=== PATIENT | male | born 1940 | race Caucasian/White ===

== ENCOUNTER 2016-03-17 07:07 | Emergency (ER) | payer MEDICARE ==
--- NOTE | 2016-03-17 08:11 | ERRECORD ---
[facility] EMERGENCY RECORD HPI URINARY RETENTION (07:51 JPIP) CHIEF COMPLAINT: Patient presents for evaluation of acute urinary retention, Patient presents for evaluation of patient had a arredondo placed post bladder surgery. Today feels bladder is distened and bag is not filling. HISTORIAN: History provided by patient. LOCATION: Symptoms are localized, most severe in the suprapubic region. QUALITY: Pain is dull in nature, described as pressure-like. SEVERITY: Current severity of pain rated as 7/10. TIME COURSE: Gradual onset of symptoms, 1, days priror to arrival, Symptoms are worsening, are constant. ASSOCIATED WITH: Associated with abdominal pain, No associated chills, No associated fever, No associated flank pain, No associated nausea, No associated vomiting. EXACERBATED BY: Patient's condition exacerbated by palpation of abdomen. RELIEVED BY: Patient's condition relieved by nothing. ROS (07:54 JPIP) CONSTITUTIONAL: Historian denies chills, denies fever. GI: Historian reports abdominal pain, reports constipation, denies nausea, denies vomiting. GENITOURINARY MALE: Historian reports urinary retention. NOTES: All systems reviewed, negative except as described above. PAST MEDICAL HISTORY MEDICAL HISTORY: Notes: hunner's ulcer, interstitial cystitis, Flu vaccine up to date, Tetanus not up to date, Pneumococcal vaccine up to date, Past medical history includes history of diabetes, genitourinary history. benign prostatic hypertrophy, Past medical history includes history of hypertension. (07:14 KMOR) MALE SURGICAL HISTORY: Surgical history of prostatectomy, TURP. (07:14 KMOR) PSYCHIATRIC HISTORY: No previous psychiatric history. (07:14 KMOR) SOCIAL HISTORY: Patient drinks socially, rarely, Patient denies drug use, Patient has no smoking history. (07:14 KMOR) NOTES: Nursing records reviewed, Medication list reviewed. (07:56 JPIP) KNOWN ALLERGIES Sulfa (Sulfonamide Antibiotics) CURRENT MEDICATIONS lisinopril: TABLET : Strength - 40 mg : ORAL Patient Dose: 1 tab(s) Oral once a day. (07:17 AHOO) hydrochlorothiazide: &a-1R&a+25V*p+0X*k9724E*c202B*c15G*c2P*p-0X&a-25V&a+1R Name: Liz Anderson : 1940 M75 MedRec: [id number] AcctNum: [id number] Prepared: SunMar 17, 2016 08:09 by Interface Page 1 of 4 pMD [facility] EMERGENCY RECORD CAPSULE : Strength - 12.5 mg : ORAL Patient Dose: 1 tab(s) Oral once a day. (07:19 AHOO) metFORMIN: TABLET : Strength - 1,000 mg : ORAL Patient Dose: 1 tab(s) Oral 2 times a day. (07:19 AHOO) Lovaza: CAPSULE : Strength - 1 gram : ORAL Patient Dose: 1 tab(s) Oral once a day (in the morning). (07:21 AHOO) Centrum Silver: TABLET : ORAL Patient Dose: 1 tab(s) Oral once a day (in the morning). (07:22 AHOO) Cinnamon: CAPSULE : Strength - 500 mg : ORAL Patient Dose: 1 cap(s) Oral once a day (in the morning). (07:22 AHOO) amitriptyline: TABLET : Strength - 25 mg : ORAL Patient Dose: 1 tab(s) Oral once a day (in the evening). (07:23 AHOO) Atarax: TABLET : Strength - 25 mg : ORAL Patient Dose: 1 tab(s) Oral once a day (in the evening). (07:24 AHOO) PriLOSEC: CAPSULE,DELAYED RELEASE (ENTERIC COATED) : Strength - 40 mg : ORAL Patient Dose: 1 tab(s) Oral once a day (in the evening). (07:24 AHOO) Lipitor: TABLET : Strength - 20 mg : ORAL Patient Dose: 1 tab(s) Oral once a day (in the evening). (07:25 AHOO) Flomax: CAPSULE, EXT RELEASE 24 HR : Strength - 0.4 mg : ORAL Patient Dose: 1 tab(s) Oral once a day (in the evening). (07:32 AHOO) Aleve: CAPSULE : Strength - 220 mg : ORAL Patient Dose: 1 cap(s) Oral once a day (in the evening). (07:33 AHOO) potassium gluconate: TABLET : Strength - 595 mg (99 mg) : ORAL Patient Dose: 1 tab(s) Oral once a day (in the evening). (07:34 AHOO) clobetasol: CREAM (GRAM) : Strength - 0.05 % : TOPICAL Patient Dose: 1 jalen Topical As Needed. (07:36 AHOO) Clobex: SPRAY, NON-AEROSOL (ML) : Strength - 0.05 % : TOPICAL &a-1R&a+25V*p+0X*c0074B*c202B*c15G*c2P*p-0X&a-25V&a+1R Name: Liz Anderson : 1940 M75 MedRec: [id number] AcctNum: [id number] Prepared: SunMar 17, 2016 08:09 by Interface Page 2 of 4 pMD [facility] EMERGENCY RECORD Patient Dose: 1 jalen Topical As Needed. (07:37 AHOO) Olux: FOAM (GRAM) : Strength - 0.05 % : TOPICAL Patient Dose: 1 jalen Topical As Needed. (07:39 AHOO) Pyridium: TABLET : Strength - 200 mg : ORAL Patient Dose: 1 tab(s) Oral As Needed. (07:40 AHOO) VITAL SIGNS VITAL SIGNS: BP: 142/101, Pulse: 94, Resp: 18, Temp: 97.6 (Oral), Pain: 7, O2 sat: 94 on Room Air, Time: 03/17/2016 07:11. (07:11 KMOR) BP: 175/88, Pulse: 95, Resp: 18, Temp: 98.0 (Oral), Pain: 0, O2 sat: 98 on Room Air, Time: 03/17/2016 07:55. (07:55 AHOO) PHYSICAL EXAM (07:55 [facility]) CONSTITUTIONAL: Vital signs reviewed, Patient afebrile, Pulse normal, Blood pressure, hypertensive, Respiratory rate normal, Patient appears in pain, in mild pain distress, Patient alert and oriented to person, place and time. HEAD: Head exam included findings of head atraumatic, normocephalic. EYES: Eye exam included findings of eyelids normal to inspection, Conjunctiva normal, Sclera normal, no periorbital ecchymosis, no periorbital edema, no periorbital erythema. RESPIRATORY CHEST: Respiratory exam included findings of no respiratory distress. ABDOMEN MALE: Abdominal exam included findings of abdomen tender, to the suprapubic region. BACK: no costovertebral angle tenderness. NEURO: [place] coma scale 15, Neuro exam findings include patient oriented to person, place and time, no focal motor deficits. SKIN: Skin exam included findings of skin warm, dry, and normal in color. PSYCHIATRIC: Psychiatric exam included findings of patient oriented to person place and time, Normal affect. PROBLEM LIST No recorded problems DIAGNOSIS (08:06 IP) FINAL: PRIMARY: urinary retention, ADDITIONAL: arredondo occlusion. PRESCRIPTION (07:38 JPIP) Dulcolax (bisacodyl) rectal: SUPPOSITORY, RECTAL : 10 mg : RECTAL : Quantity: 1 Unit: Route: RECTAL Schedule: 1 to 2 times a day Dispense: 6 May substitute. Refills: No Refills . NOTES: for constipation No refills. &a-1R&a+25V*p+0X*r1587J*c202B*c15G*c2P*p-0X&a-25V&a+1R Name: Liz Anderson : 1940 M75 MedRec: [id number] AcctNum: [id number] Prepared: SunMar 17, 2016 08:09 by Interface Page 3 of 4 pMD [facility] EMERGENCY RECORD DISPOSITION PATIENT: Disposition Type: Discharge, Disposition: *Discharge Home, Condition: Good. (08:06 IP) Patient left the department. (08:06 [facility]) Garsia: [facility]=TR Lovett, May JPIP=DO Duarte Joseph KMOR=JULIAN Britton, Autumn &a-1R&a+25V*p+0X*h9212F*c202B*c15G*c2P*p-0X&a-25V&a+1R Name: Liz Anderson : 1940 M75 MedRec: [id number] AcctNum: [id number] Prepared: SunMar 17, 2016 08:09 by Interface Page 4 of 4 pMD MTDD
--- NOTE | 2016-03-17 08:17 | PICIS ---
[facility] EMERGENCY RECORD TRIAGE (07:11 KMOR) TRIAGE NOTES: Catheter placed at [facility] last week and this am, feels like catheter is not working. (07:11 KMOR) PATIENT: NAME: Liz Anderson, AGE: 75, GENDER: male, : Sun1940, TIME OF GREET: SunMar 17, 2016 07:08, PREFERRED LANGUAGE: Spanish, ETHNICITY: Not or , ECODE BILLING MAP: [facility], SSN: [id number], Zip Code: [address], KG WEIGHT: 78.02, , , PERSON ID: [id number], PAYMENT: [employer], PCP: Kalia Peterson. (07:11 KMOR) PHONE: . (07:32) COMPLAINT: Cathether complications. (07:11 KMOR) ADMISSION: URGENCY: 4 Non Urgent, ADMISSION SOURCE: Home, TRANSPORT: CAR, BED: ER -02. (07:11 KMOR) ASSESSMENT: Assessment: A&OX4. RR EVEN AND UNLABORED., Symptoms began 2 hours ago. (07:14 KMOR) PAIN: Patient complains of pain described as, pressure, on a scale 0-10 patient rates pain as 7, Location SUPRAPUBIC. (07:14 KMOR) IMMUNIZATIONS: Flu vaccine up to date, Tetanus not up to date, Pneumococcal vaccine up to date. (07:14 KMOR) SIRS SCORING: Heart Rate 55-109 (0), Temp range 96.8-101.1 (0), respiratory rate 12-24 (0), Mental Status altered: no (0), Infection or Suspected Infection: No. (07:14 KMOR) TRIAGE SCREENING: Patient denies suicidal ideation, Patient denies presence of domestic violence. (07:14 KMOR) PROVIDERS: TRIAGE NURSE: Autumn Britton RN. (07:11 KMOR) KNOWN ALLERGIES Sulfa (Sulfonamide Antibiotics) CURRENT MEDICATIONS lisinopril: TABLET : Strength - 40 mg : ORAL Patient Dose: 1 tab(s) Oral once a day. (07:17 AHOO) hydrochlorothiazide: CAPSULE : Strength - 12.5 mg : ORAL Patient Dose: 1 tab(s) Oral once a day. (07:19 AHOO) metFORMIN: TABLET : Strength - 1,000 mg : ORAL Patient Dose: 1 tab(s) Oral 2 times a day. (07:19 AHOO) Lovaza: CAPSULE : Strength - 1 gram : ORAL Patient Dose: 1 tab(s) Oral once a day (in the morning). (07:21 AHOO) Centrum Silver: TABLET : ORAL Patient Dose: 1 tab(s) Oral once a day (in the morning). (07:22 AHOO) Cinnamon: &a-1R&a+25V*p+0X*h7096B*c202B*c15G*c2P*p-0X&a-25V&a+1R Name: Liz Anderson : 1940 M75 MedRec: [id number] AcctNum: [id number] Prepared: SunMar 17, 2016 08:15 by Interface Page 1 of 6 pMD [facility] EMERGENCY RECORD CAPSULE : Strength - 500 mg : ORAL Patient Dose: 1 cap(s) Oral once a day (in the morning). (07:22 AHOO) amitriptyline: TABLET : Strength - 25 mg : ORAL Patient Dose: 1 tab(s) Oral once a day (in the evening). (07:23 AHOO) Atarax: TABLET : Strength - 25 mg : ORAL Patient Dose: 1 tab(s) Oral once a day (in the evening). (07:24 AHOO) PriLOSEC: CAPSULE,DELAYED RELEASE (ENTERIC COATED) : Strength - 40 mg : ORAL Patient Dose: 1 tab(s) Oral once a day (in the evening). (07:24 AHOO) Lipitor: TABLET : Strength - 20 mg : ORAL Patient Dose: 1 tab(s) Oral once a day (in the evening). (07:25 AHOO) Flomax: CAPSULE, EXT RELEASE 24 HR : Strength - 0.4 mg : ORAL Patient Dose: 1 tab(s) Oral once a day (in the evening). (07:32 AHOO) Aleve: CAPSULE : Strength - 220 mg : ORAL Patient Dose: 1 cap(s) Oral once a day (in the evening). (07:33 AHOO) potassium gluconate: TABLET : Strength - 595 mg (99 mg) : ORAL Patient Dose: 1 tab(s) Oral once a day (in the evening). (07:34 AHOO) clobetasol: CREAM (GRAM) : Strength - 0.05 % : TOPICAL Patient Dose: 1 jalen Topical As Needed. (07:36 AHOO) Clobex: SPRAY, NON-AEROSOL (ML) : Strength - 0.05 % : TOPICAL Patient Dose: 1 jalen Topical As Needed. (07:37 AHOO) Olux: FOAM (GRAM) : Strength - 0.05 % : TOPICAL Patient Dose: 1 jalen Topical As Needed. (07:39 AHOO) Pyridium: TABLET : Strength - 200 mg : ORAL Patient Dose: 1 tab(s) Oral As Needed. (07:40 AHOO) VITAL SIGNS VITAL SIGNS: BP: 142/101, Pulse: 94, Resp: 18, Temp: 97.6 (Oral), Pain: 7, O2 sat: 94 on Room Air, Time: 03/17/2016 07:11. (07:11 KMOR) BP: 175/88, Pulse: 95, Resp: 18, Temp: 98.0 (Oral), Pain: 0, O2 sat: 98 on Room Air, Time: 03/17/2016 07:55. (07:55 AHOO) &a-1R&a+25V*p+0X*h5307A*c202B*c15G*c2P*p-0X&a-25V&a+1R Name: Liz Anderson : 1940 M75 MedRec: [id number] AcctNum: [id number] Prepared: SunMar 17, 2016 08:15 by Interface Page 2 of 6 pMD [facility] EMERGENCY RECORD NURSING ASSESSMENT: TUBES AND PORTS (07:33 KMOR) PAIN: pressure pain, suprapubic, on a scale 0-10 patient rates pain as 7. TUBES AND PORTS: Indwelling urinary catheter present, 16Fr, with no urine output, Notes: Patient reports catheter placed on Wed after bladder surgery. Reports was draining last night but no urinary output this am. Reports pressure to suprapubic area. NOTES: Patient tolerated procedure well. NURSING PROCEDURE: DISCHARGE NOTE (07:59 AHOO) DISCHARGE: Patient discharged to home, ambulating without assistance, family driving, accompanied by //partner, Summary of Care printed/ provided, Transition record given to patient, Discharge instructions given to patient, Discharge instructions given to PT SPOUSE, Prescriptions given and instructions on side effects given, Above person(s) verbalized understanding of discharge instructions and follow-up care, Patient treated and evaluated by physician. NURSING PROCEDURE: URINE COLLECTION PATIENT IDENTIFIER: Patient actively involved in identification process, Patient's identity verified by patient stating name, Patient's identity verified by patient stating date. (07:34 KMOR) URINE COLLECTION MALE: Simple arredondo inserted, using a 16 fr pre-connected catheter, output amount (mL) 25ml, urine yellow in color, and cloudy, Specimen labeled in the presence of the patient and sent to lab, Specimen obtained for culture labeled in the presence of the patient and sent to lab. (07:57 KMOR) FOLLOW UP: Total irrigation fluid used (ml) 30ml, Total output (ml) 200ml, Total urine output (ml) 170ml, Changed Leg Bag, Patient tolerated procedure well. (07:42 KMOR) NOTES: Patient tolerated procedure well. (07:34 KMOR) ORDER DETAILS Order Name: Culture, Urine, Status: Active, Time: 07:41 03/17/2016, User: BRIAN, - Ordered for: DO Duarte Joseph, - Entered by: DO Duarte Joseph - SunMar 17, 2016 07:41, - Quantity: 1, Order Name: Urinalysis w/ Rflx Microscopic, Status: Active, Time: 07:41 03/17/2016, User: BRIAN, - Ordered for: DO Duarte Joseph, - Entered by: DO Duarte Joseph - SunMar 17, 2016 07:41, - Quantity: 1. HPI URINARY RETENTION (07:51 BRIAN) CHIEF COMPLAINT: Patient presents for evaluation of acute &a-1R&a+25V*p+0X*i4508Z*c202B*c15G*c2P*p-0X&a-25V&a+1R Name: Justin Treanand Gannon : 1940 M75 MedRec: [id number] AcctNum: [id number] Prepared: SunMar 17, 2016 08:15 by Interface Page 3 of 6 pMD [facility] EMERGENCY RECORD urinary retention, Patient presents for evaluation of patient had a arredondo placed post bladder surgery. Today feels bladder is distened and bag is not filling. HISTORIAN: History provided by patient. LOCATION: Symptoms are localized, most severe in the suprapubic region. QUALITY: Pain is dull in nature, described as pressure-like. SEVERITY: Current severity of pain rated as 7/10. TIME COURSE: Gradual onset of symptoms, 1, days priror to arrival, Symptoms are worsening, are constant. ASSOCIATED WITH: Associated with abdominal pain, No associated chills, No associated fever, No associated flank pain, No associated nausea, No associated vomiting. EXACERBATED BY: Patient's condition exacerbated by palpation of abdomen. RELIEVED BY: Patient's condition relieved by nothing. ROS (07:54 JPIP) CONSTITUTIONAL: Historian denies chills, denies fever. GI: Historian reports abdominal pain, reports constipation, denies nausea, denies vomiting. GENITOURINARY MALE: Historian reports urinary retention. NOTES: All systems reviewed, negative except as described above. PAST MEDICAL HISTORY MEDICAL HISTORY: Notes: hunner's ulcer, interstitial cystitis, Flu vaccine up to date, Tetanus not up to date, Pneumococcal vaccine up to date, Past medical history includes history of diabetes, genitourinary history. benign prostatic hypertrophy, Past medical history includes history of hypertension. (07:14 KMOR) MALE SURGICAL HISTORY: Surgical history of prostatectomy, TURP. (07:14 KMOR) PSYCHIATRIC HISTORY: No previous psychiatric history. (07:14 KMOR) SOCIAL HISTORY: Patient drinks socially, rarely, Patient denies drug use, Patient has no smoking history. (07:14 KMOR) NOTES: Nursing records reviewed, Medication list reviewed. (07:56 JPIP) PHYSICAL EXAM (07:55 JPIP) CONSTITUTIONAL: Vital signs reviewed, Patient afebrile, Pulse normal, Blood pressure, hypertensive, Respiratory rate normal, Patient appears in pain, in mild pain distress, Patient alert and oriented to person, place and time. HEAD: Head exam included findings of head atraumatic, normocephalic. EYES: Eye exam included findings of eyelids normal to inspection, Conjunctiva normal, Sclera normal, no periorbital ecchymosis, no periorbital edema, no periorbital erythema. &a-1R&a+25V*p+0X*g9296W*c202B*c15G*c2P*p-0X&a-25V&a+1R Name: Liz Anderson : 1940 M75 MedRec: [id number] AcctNum: [id number] Prepared: SunMar 17, 2016 08:15 by Interface Page 4 of 6 pMD [facility] EMERGENCY RECORD RESPIRATORY CHEST: Respiratory exam included findings of no respiratory distress. ABDOMEN MALE: Abdominal exam included findings of abdomen tender, to the suprapubic region. BACK: no costovertebral angle tenderness. NEURO: [place] coma scale 15, Neuro exam findings include patient oriented to person, place and time, no focal motor deficits. SKIN: Skin exam included findings of skin warm, dry, and normal in color. PSYCHIATRIC: Psychiatric exam included findings of patient oriented to person place and time, Normal affect. EVENTS TRANSFER: Triage to Emergency Emergency Room -02. (SunMar 17, 2016 07:11 KMOR) Removed from Emergency Emergency Room -02. (08:06 AHOO) O2SAT INTERPRETATION (07:39 JPIP) O2SAT: Single pulse oximetry, Oxygen saturation 94%, on room air, Oxygen saturation interpretation: Normal, No intervention required. PROBLEM LIST No recorded problems DIAGNOSIS (08:06 JPIP) FINAL: PRIMARY: urinary retention, ADDITIONAL: arredondo occlusion. DISPOSITION PATIENT: Disposition Type: Discharge, Disposition: *Discharge Home, Condition: Good. (08:06 JPIP) Patient left the department. (08:06 AHOO) INSTRUCTION (07:45 JPIP) DISCHARGE: URINARY RETENTION, MALE, CONSTIPATION (ADULT). FOLLOWUP: Kalia Peterson, Internal Medicine, [address], [address], [place] [address], [facility], . SPECIAL: Follow-up with your PCP Follow up with your Urologist as scheduled Return to the Emergency Department for increased symptoms problems or concerns. PRESCRIPTION (07:38 JPIP) Dulcolax (bisacodyl) rectal: SUPPOSITORY, RECTAL : 10 mg : RECTAL : Quantity: 1 Unit: Route: RECTAL Schedule: 1 to 2 times a day Dispense: 6 May substitute. Refills: No Refills . NOTES: for constipation No refills. &a-1R&a+25V*p+0X*q3597A*c202B*c15G*c2P*p-0X&a-25V&a+1R Name: Liz Anderson : 1940 M75 MedRec: [id number] AcctNum: [id number] Prepared: SunMar 17, 2016 08:15 by Interface Page 5 of 6 pMD [facility] EMERGENCY RECORD IMAGING (08:03 [facility]) *DISCHARGE INSTRUCTIONS RECEIPT: Image captured from scanner. *SUPPLY CHARGE SHEET: Image captured from scanner. Garsia: AHOO=TR LovettMay JPIP=DO Duarte Joseph KMOR=JULIAN Britton, Autumn &a-1R&a+25V*p+0X*c9967L*c202B*c15G*c2P*p-0X&a-25V&a+1R Name: Liz Anderson : 1940 M75 MedRec: [id number] AcctNum: [id number] Prepared: SunMar 17, 2016 08:15 by Interface Page 6 of 6 pMD MTDD
[2016-03-17 08:21] LABS: Bilirubin Negative (Negative); Blood, Urine Large (Negative); Glucose, Urine (Dipstick) Negative (Negative); Ketone, Urine Negative (Negative); Nitrite Negative (Negative); Protein, Urine (Dipstick) > or equal to 300 mg/dL (Neg-Trace); Urobilinogen 0.2 mg/dL (0.2-1.0)
[2016-03-17 08:24] LABS: Bacteria/HPF Rare-Few HPF (None Seen); RBC/HPF GREATER THAN 50-TNTC HPF (0-3); Squamous Epithelial 0-3 HPF (0-3)
== END 2016-03-17 07:59 | disposition home or self-care (01) ==
LOC: BURERS 07:07
DX: T83.091A Other mechanical complication of indwelling urethral catheter, initial encounter (principal); R33.9 Retention of urine, unspecified; E11.9 Type 2 diabetes mellitus without complications; I10 Essential (primary) hypertension; Z79.84 Long term (current) use of oral hypoglycemic drugs; Z79.899 Other long term (current) drug therapy
CPT/HCPCS: 51702; 81003; 81015; 87086

== ENCOUNTER 2016-03-18 12:06 | Emergency (ER) | payer MEDICARE ==
[2016-03-18 13:05] LABS: Bilirubin Negative (Negative); Blood, Urine Large (Negative); Glucose, Urine (Dipstick) Negative (Negative); Ketone, Urine Negative (Negative); Nitrite Negative (Negative); Protein, Urine (Dipstick) 100 mg/dL (Neg-Trace); Urobilinogen 0.2 mg/dL (0.2-1.0)
[2016-03-18 13:13] LABS: Bacteria/HPF Rare-Few HPF (None Seen); Hyaline Casts/LPF NONE SEEN LPF (0-3 Hyaline); Oval Fat Bodies/HPF None Seen HPF (None Seen); Renal Epithelial None Seen HPF (0-3); Sperm/HPF None Seen HPF (None Seen); Squamous Epithelial None Seen HPF (0-3); Transitional Epithelial NONE SEEN HPF (0-3); Trichomonas/HPF None Seen HPF (None Seen); Yeast-All Forms None Seen HPF (None Seen)
--- NOTE | 2016-03-18 13:39 | ERRECORD ---
[facility] EMERGENCY RECORD HPI URINARY RETENTION (12:26 WMEI) CHIEF COMPLAINT: Patient presents for evaluation of acute urinary retention. HISTORIAN: History provided by patient, discomfort suprapupicaly intermittent occ drainage around arredondo. LOCATION: Symptoms are localized. QUALITY: Described as similar to previous episodes. TIME COURSE: Gradual onset of symptoms, 1, days priror to arrival, was seen last night irrigated well went home did well till this am. ASSOCIATED WITH: No associated chills, No associated fever. EXACERBATED BY: Patient's condition exacerbated by nothing. RELIEVED BY: Patient's condition relieved by nothing. ROS (12:28 WMEI) CONSTITUTIONAL: Historian denies chills, denies fever. EYES: Historian denies eye pain, denies eye discharge. ENT: Historian denies rhinorrhea, denies sore throat. CARDIOVASCULAR: Historian denies chest pain, no radiation. RESPIRATORY: Historian denies cough, denies shortness of breath. GI: Historian reports abdominal pain, denies nausea, denies vomiting. see hpi. GENITOURINARY MALE: Historian reports dysuria, reports urinary retention. MUSCULOSKELETAL: Historian denies joint stiffness, denies joint swelling. SKIN: Historian denies skin changes, denies skin lesions. NEUROLOGIC: Historian denies focal weakness, denies mental status changes. PSYCHIATRIC: Historian denies alcohol abuse, denies drug abuse. PAST MEDICAL HISTORY (12:16 LGIB) MEDICAL HISTORY: Past medical history includes history of diabetes, Notes: hunner's ulcer, interstitial cystitis, Past medical history includes history of diabetes, Past medical history includes genitourinary history, benign prostatic hypertrophy, Past medical history includes history of hypertension. MALE SURGICAL HISTORY: Surgical history of prostatectomy, TURP, bladder sx. PSYCHIATRIC HISTORY: No previous psychiatric history. SOCIAL HISTORY: Patient drinks socially, rarely, Patient denies drug use, Patient has no smoking history. KNOWN ALLERGIES Sulfa (Sulfonamide Antibiotics) (Unconfirmed) CURRENT MEDICATIONS No recorded medications VITAL SIGNS (12:21 LGIB) VITAL SIGNS: BP: 156/108, Pulse: 119, Resp: 16 (Non-Labored), &a-1R&a+25V*p+0X*f3096G*c202B*c15G*c2P*p-0X&a-25V&a+1R Name: Liz Anderson : 1940 M75 MedRec: [id number] AcctNum: [id number] Prepared: Sat Mar 18, 2016 19:52 by Interface Page [address] [facility] EMERGENCY RECORD Temp: 98.3 (Oral), Pain: 2, O2 sat: 96 on Room Air, Time: 03/18/2016 12:21. PHYSICAL EXAM (12:29 WMEI) CONSTITUTIONAL: Patient afebrile, Patient appears non toxic, Patient alert and oriented to person, place and time. HEAD: Head exam included findings of head atraumatic, normocephalic. EYES: Extraocular muscles intact, Conjunctiva normal, Sclera normal. ENT: Ear exam normal, Nose exam normal. NECK: Neck exam included findings of normal range of motion, Trachea midline. RESPIRATORY CHEST: Breath sounds clear, Chest exam included findings of chest movement symmetrical. CARDIOVASCULAR: Cardiovascular exam included findings of heart rate regular rate and rhythm, Heart sounds normal. ABDOMEN MALE: Abdominal exam included findings of abdomen nontender, Liver normal, Spleen normal. UPPER EXTREMITY: Upper extremity exam included findings of inspection normal, Range of motion normal, Motor strength normal. LOWER EXTREMITY: Lower extremity exam included findings of inspection normal, Range of motion normal, Motor strength normal. NEURO: [place] coma scale 15, Neuro exam findings include patient oriented to person, place and time, Speech normal, Gait normal. SKIN: Skin exam included findings of skin warm, dry, and normal in color. LYMPHATIC: Lymphatic exam normal. PSYCHIATRIC: Psychiatric exam included findings of patient oriented to person place and time, Normal affect, Judgment normal, Insight normal. DOCTOR NOTES (13:03 WMEI) TEXT: arredondo irrigated with good return pt asymptomatic. PROBLEM LIST No recorded problems DIAGNOSIS (13:02 WMEI) FINAL: PRIMARY: urinary retention. PRESCRIPTION No recorded prescriptions DISPOSITION PATIENT: Disposition Type: Discharge, Disposition: *Discharge Home. (13:02 WMEI) Patient left the department. (13:29 [facility]) Garsia: &a-1R&a+25V*p+0X*m8106Z*c202B*c15G*c2P*p-0X&a-25V&a+1R Name: Liz Anderson : 1940 M75 MedRec: [id number] AcctNum: [id number] Prepared: Mike Mar 18, 2016 19:52 by Interface Page [address] [facility] EMERGENCY RECORD AHOO=TR Lovett, May LGIB=JULIAN Coulter, Maria Teresa WMEI=DO Jennifer, Jordan &a-1R&a+25V*p+0X*l4131K*c202B*c15G*c2P*p-0X&a-25V&a+1R Name: JustinLiz : 1940 M75 MedRec: [id number] AcctNum: [id number] Prepared: Mike Mar 18, 2016 19:52 by Interface Page 3 of 3 pMD MTDD
--- NOTE | 2016-03-18 13:43 | PICIS ---
[facility] EMERGENCY RECORD TRIAGE ([facility] Mar 18, 2016 12:15 LGIB) TRIAGE NOTES: had bladder sx last Sunday. solitario not draining since last night. has seen blood clots in bag. ([facility] Mar 18, 2016 12:15 LGIB) PATIENT: NAME: Liz Anderson, AGE: 75, GENDER: male, : [id number], TIME OF GREET: Sat Mar 18, 2016 12:06, PREFERRED LANGUAGE: Wolof, ETHNICITY: Not or , ECODE BILLING MAP: [facility], SSN: [id number], Zip Code: [address], KG WEIGHT: 85.28, PHONE: , , , PERSON ID: [id number], PAYMENT: [place], PCP: Kalia Peterson. ([facility] Mar 18, 2016 12:15 LGIB) COMPLAINT: solitario not draining. ([facility] Mar 18, 2016 12:15 LGIB) ADMISSION: URGENCY: 3 Urgent, ADMISSION SOURCE: Home, TRANSPORT: CAR, BED: ER -03. ([facility] Mar 18, 2016 12:15 LGIB) SIRS SCORING: Heart Rate 55-109 (0), Temp range 96.8-101.1 (0), respiratory rate 12-24 (0), Mental Status altered: no (0), Total SIRS Score 0. (12:15 LGIB) PROVIDERS: TRIAGE NURSE: Maria Teresa Coulter RN. ([facility] Mar 18, 2016 12:15 LGIB) PREVIOUS VISIT ALLERGIES: Sulfa (Sulfonamide Antibiotics). ([facility] Mar 18, 2016 12:15 LGIB) Sulfa (Sulfonamide Antibiotics). (12:16 LGIB) KNOWN ALLERGIES Sulfa (Sulfonamide Antibiotics) (Unconfirmed) CURRENT MEDICATIONS No recorded medications VITAL SIGNS (12:21 LGIB) VITAL SIGNS: BP: 156/108, Pulse: 119, Resp: 16 (Non-Labored), Temp: 98.3 (Oral), Pain: 2, O2 sat: 96 on Room Air, Time: 03/18/2016 12:21. NURSING ASSESSMENT: GENITOURINARY (12:20 LGIB) CONSTITUTIONAL: Complex assessment performed, Patient arrives ambulatory, Gait steady, History obtained from patient, Patient appears comfortable, Patient cooperative, Patient alert, Oriented to person, place and time, Skin warm, Skin dry, Skin normal in color, Mucous membranes pink, Mucous membranes moist, Patient is well-groomed, Patient complains of SOLITARIO NOT DRAINING, PT WITH INDWELLING SOLITARIO SINCE LAST SUNDAY. SOLITARIO PLACED WHEN PATIENT HAD BLADDER SX. SOLITARIO HAS NOT BEEN DRANING SINCE LAST NIGHT. STATES THAT URINE HAS BEEN LEAKING AROUND SOLITARIO CATHETER. STATES THERE HAS ALSO BEEN SMALL BLOOD CLOTS IN SOLITARIO BAG. NAD, RR EVEN AND UNLABORED. GENITOURINARY MALE: Male genitourinary assessment findings include external genitalia normal, Scrotum normal, Testicles normal, Associated with indwelling urinary catheter present, MINIMAL OUTPUT, SMALL BLOOD CLOTS IN SOLITARIO BAG. ABDOMEN: Abdomen assessment findings include abdomen symmetrical, &a-1R&a+25V*p+0X*z2243D*c202B*c15G*c2P*p-0X&a-25V&a+1R Name: Liz Anderson : 1940 M75 MedRec: [id number] AcctNum: [id number] Prepared: Sat Mar 18, 2016 19:52 by Interface Page [address] [facility] EMERGENCY RECORD Abdomen soft, non-tender, Bowel sound normal, no associated nausea, no associated vomiting, no associated diarrhea. SAFETY: Side rails up, Cart/Stretcher in lowest position, Family at bedside, Call light within reach, Hospital ID band on. NURSING PROCEDURE: DISCHARGE NOTE (13:23 AHOO) DISCHARGE: Patient discharged to home, ambulating without assistance, family driving, accompanied by //partner, Summary of Care printed/ provided, Transition record given to patient, Discharge instructions given to patient, Discharge instructions given to PT SPOUSE, Above person(s) verbalized understanding of discharge instructions and follow-up care, Patient treated and evaluated by physician, Notes: INSTRUCTED PT AND HIS SPOUSE AGAIN REGARDING CALLING THE SURGEON THAT DID THEY SURGERY TO FOLLOW UP. NURSING PROCEDURE: NURSE NOTES (12:45 AHOO) NURSES NOTES: Notes: PER MD ORDERS IRRIGATED PT SOLITARIO WITH 10CC STERILE WATER PT DENIED ANY PAIN, THE URINE STARTED FLOWING OUT INTO THE SOLITARIO DRAINAGE BAG. CLEAR, YELLOW URINE DRAINED INTO THE BAG, NO BLOOD, CLOTS OR SEDIMENTS NOTED. PT TOLERATED WELL. ORDER DETAILS Order Name: Urinalysis w/ Rflx Microscopic, Status: Active, Time: 12:31 03/18/2016, User: Bloggerce, - Ordered for: DO Rodriguez William, - Entered by: DO Rodriguez William - Sat Mar 18, 2016 12:31, - Quantity: 1. HPI URINARY RETENTION (12:26 WMEI) CHIEF COMPLAINT: Patient presents for evaluation of acute urinary retention. HISTORIAN: History provided by patient, discomfort suprapupicaly intermittent occ drainage around solitario. LOCATION: Symptoms are localized. QUALITY: Described as similar to previous episodes. TIME COURSE: Gradual onset of symptoms, 1, days priror to arrival, was seen last night irrigated well went home did well till this am. ASSOCIATED WITH: No associated chills, No associated fever. EXACERBATED BY: Patient's condition exacerbated by nothing. RELIEVED BY: Patient's condition relieved by nothing. ROS (12:28 WMEI) CONSTITUTIONAL: Historian denies chills, denies fever. EYES: Historian denies eye pain, denies eye discharge. ENT: Historian denies rhinorrhea, denies sore throat. CARDIOVASCULAR: Historian denies chest pain, no radiation. RESPIRATORY: Historian denies cough, denies shortness of breath. GI: Historian reports abdominal pain, denies nausea, &a-1R&a+25V*p+0X*[id number]*c202B*c15G*c2P*p-0X&a-25V&a+1R Name: Liz Anderson : 1940 M75 MedRec: [id number] AcctNum: [id number] Prepared: Sat Mar 18, 2016 19:52 by Interface Page [address] [facility] EMERGENCY RECORD denies vomiting. see hpi. GENITOURINARY MALE: Historian reports dysuria, reports urinary retention. MUSCULOSKELETAL: Historian denies joint stiffness, denies joint swelling. SKIN: Historian denies skin changes, denies skin lesions. NEUROLOGIC: Historian denies focal weakness, denies mental status changes. PSYCHIATRIC: Historian denies alcohol abuse, denies drug abuse. PAST MEDICAL HISTORY (12:16 LGIB) MEDICAL HISTORY: Past medical history includes history of diabetes, Notes: hunner's ulcer, interstitial cystitis, Past medical history includes history of diabetes, Past medical history includes genitourinary history, benign prostatic hypertrophy, Past medical history includes history of hypertension. MALE SURGICAL HISTORY: Surgical history of prostatectomy, TURP, bladder sx. PSYCHIATRIC HISTORY: No previous psychiatric history. SOCIAL HISTORY: Patient drinks socially, rarely, Patient denies drug use, Patient has no smoking history. PHYSICAL EXAM (12:29 WMEI) CONSTITUTIONAL: Patient afebrile, Patient appears non toxic, Patient alert and oriented to person, place and time. HEAD: Head exam included findings of head atraumatic, normocephalic. EYES: Extraocular muscles intact, Conjunctiva normal, Sclera normal. ENT: Ear exam normal, Nose exam normal. NECK: Neck exam included findings of normal range of motion, Trachea midline. RESPIRATORY CHEST: Breath sounds clear, Chest exam included findings of chest movement symmetrical. CARDIOVASCULAR: Cardiovascular exam included findings of heart rate regular rate and rhythm, Heart sounds normal. ABDOMEN MALE: Abdominal exam included findings of abdomen nontender, Liver normal, Spleen normal. UPPER EXTREMITY: Upper extremity exam included findings of inspection normal, Range of motion normal, Motor strength normal. LOWER EXTREMITY: Lower extremity exam included findings of inspection normal, Range of motion normal, Motor strength normal. NEURO: [place] coma scale 15, Neuro exam findings include patient oriented to person, place and time, Speech normal, Gait normal. SKIN: Skin exam included findings of skin warm, dry, and normal in color. LYMPHATIC: Lymphatic exam normal. PSYCHIATRIC: Psychiatric exam included findings of patient oriented to person place and time, Normal affect, Judgment normal, Insight normal. &a-1R&a+25V*p+0X*[id number]*c202B*c15G*c2P*p-0X&a-25V&a+1R Name: Liz Anderson : 1940 M75 MedRec: [id number] AcctNum: [id number] Prepared: Sat Mar 18, 2016 19:52 by Interface Page [address] [facility] EMERGENCY RECORD EVENTS TRANSFER: Triage to Emergency Emergency Room -03. (Sat Mar 18, 2016 12:15 LGIB) Removed from Emergency Emergency Room -03. (13:29 AHOO) DOCTOR NOTES (13:03 WMEI) TEXT: solitario irrigated with good return pt asymptomatic. PROBLEM LIST No recorded problems DIAGNOSIS (13:02 WMEI) FINAL: PRIMARY: urinary retention. DISPOSITION PATIENT: Disposition Type: Discharge, Disposition: *Discharge Home. (13:02 WMEI) Patient left the department. (13:29 AHOO) INSTRUCTION (13:13 WMEI) DISCHARGE: SOLITARIO CATHETER CARE. FOLLOWUP: Kalia Peterson, Internal Medicine, [address], [address], [place] [address], [facility], . SPECIAL: Follow-up with your PCP/UROLOGIST. PRESCRIPTION No recorded prescriptions IMAGING (13:27 AHOO) *DISCHARGE INSTRUCTIONS RECEIPT: Image captured from scanner. *SUPPLY CHARGE SHEET: Image captured from scanner. ADMIN (19:45 WMEI) DIGITAL SIGNATURE: DO Rodriguez William. Garsia: AHOO=TR Lovett, May LGIB=JULIAN Coulter, Maria Teresa WMEI=DO Rodriguez William &a-1R&a+25V*p+0X*[id number]*c202B*c15G*c2P*p-0X&a-25V&a+1R Name: Liz Anderson : 1940 M75 MedRec: [id number] AcctNum: [id number] Prepared: Mike Mar 18, 2016 19:52 by Interface Page 4 of 4 pMD MTDD
== END 2016-03-18 13:23 | disposition home or self-care (01) ==
LOC: BURERS 12:06
DX: R33.8 Other retention of urine (principal); N40.1 Benign prostatic hyperplasia with lower urinary tract symptoms; E11.9 Type 2 diabetes mellitus without complications; I10 Essential (primary) hypertension
CPT/HCPCS: 81003; 81015; 99283

== ENCOUNTER 2017-01-08 16:46 | Emergency (ER) | payer MEDICARE ==
[2017-01-08 17:09] LABS: #Basophils 0.1 thou/uL (0.0-0.2); #Eosinphils 0.2 thou/uL (0.0-0.7); #Lymphocytes 1.4 thou/uL (1.20-3.40); #Monocytes 0.2 thou/uL (0.11-0.59); #Neutrophils 3.9 thou/uL (1.40-6.50); %Eosinophils 3.9 % (0.0-10.0); %Neutrophils 67.2 % (42.0-75.0); Hemoglobin 13.9 g/dL (14.0-18.0); Mean Corpuscular HGB CONC 34.2 g/dL (32.0-36.0); Mean Corpuscular Hemoglobin 32.5 pg (27.0-31.0); Mean Corpuscular Volume 95.1 fl (80.0-94.0); Mean Platelet Volume 7.6 fL (7.4-10.4); Platelet Count 166 thou/uL (130-400); RBC Distribution Width 11.8 % (11.5-14.5); Red Blood Cell (RBC) Count 4.27 mill/uL (4.70-6.10); White Blood Cell (WBC) Count 5.9 thou/uL (4.8-10.8)
[2017-01-08 17:24] LABS: ALT (SGPT) 20 U/L (8-55); AST (SGOT) 16 U/L (5-34); Albumin 4.2 g/dL (3.4-4.8); Alkaline Phosphatase 73 U/L (40-150); Anion Gap 15 mmol/L (10-20); BUN (Urea Nitrogen) 23 mg/dL (8.4-25.7); Bilirubin, Total 0.5 mg/dL (0.2-1.2); Calc. Creatinine Clearance 0 mL/min (70-130); Calcium 9.4 mg/dL (7.8-10.44); Carbon Dioxide 28 mmol/L (23-31); Chloride 104 mmol/L (98-107); Estimated GFR-MDRD 45; Globulin 3.3 g/dL (2.4-3.5); Glucose 153 mg/dL (83-110); Potassium 3.7 mmol/L (3.5-5.1); Protein, Total 7.5 g/dL (5.8-8.1); Sodium 143 mmol/L (136-145)
[2017-01-08 17:28] LABS: CKMB 1.8 ng/mL (0-6.6); Troponin I Less than 0.010 ng/mL (< 0.028)
== END 2017-01-08 17:53 | disposition short-term general hospital (02) ==
LOC: BURERS 16:46
DX: R07.9 Chest pain, unspecified (principal); I10 Essential (primary) hypertension; E11.9 Type 2 diabetes mellitus without complications; Z79.82 Long term (current) use of aspirin; Z79.899 Other long term (current) drug therapy; Z79.84 Long term (current) use of oral hypoglycemic drugs
CPT/HCPCS: 80053; 82553; 84484; 85025; 93005

== ENCOUNTER 2020-06-15 16:12 | Outpatient (CLI) | payer MEDICARE | END 2020-06-15 16:13 | disposition home or self-care (01) | LOC: BURRAD 16:12 | PROVIDERS: ATTEND Internal Medicine | DX: R05 Cough (principal) | CPT/HCPCS: 71046 ==

== ENCOUNTER 2021-03-30 14:26 | Emergency (ER) | payer MEDICARE | END 2021-03-30 15:00 | disposition home or self-care (01) | LOC: BURERS 14:26 | DX: K59.00 Constipation, unspecified (principal); I10 Essential (primary) hypertension; E11.9 Type 2 diabetes mellitus without complications; E78.00 Pure hypercholesterolemia, unspecified; Z79.84 Long term (current) use of oral hypoglycemic drugs; Z79.82 Long term (current) use of aspirin; Z79.899 Other long term (current) drug therapy | CPT/HCPCS: 99282 ==

== ENCOUNTER 2022-08-21 15:04 | Emergency (ER) | payer MEDICARE ==
[~2022-08-21 15:04] MED LIST: Iopamidol 370 76% 100 ML VIAL ONE
[2022-08-21 15:51] LABS: #Eosinphils 0.2 thou/uL (0.0-0.7); #Monocytes 0.2 thou/uL (0.11-0.59); #Neutrophils 3.3 thou/uL (1.40-6.50); %Basophils 0.9 % (0.0-1.0); %Eosinophils 5.1 % (0.0-10.0); %Lymphocytes 21.2 % (21.0-51.0); %Monocytes 4.3 % (0.0-10.0); %Neutrophils 68.4 % (42.0-75.0); Hemoglobin 12.5 g/dL (14.0-18.0); Mean Corpuscular HGB CONC 33.4 g/dL (32.0-36.0); Mean Corpuscular Hemoglobin 30.5 pg (27.0-31.0); Mean Corpuscular Volume 91.3 fl (78.0-98.0); Mean Platelet Volume 7.9 fL (7.4-10.4); Platelet Count 156 10x3/uL (130-400); White Blood Cell (WBC) Count 4.8 10x3/uL (4.8-10.8)
[2022-08-21 16:01] LABS: Bilirubin Negative (Negative); Blood, Urine Small (Negative); Clarity Clear (Clear); Glucose, Urine (Dipstick) 500 mg/dL (Negative); Ketone, Urine 15 mg/dL (Negative); Leukocyte Negative (Negative); Nitrite Negative (Negative); Protein, Urine (Dipstick) 100 mg/dL (Neg-Trace); Urobilinogen 0.2 mg/dL (Less than 2)
[2022-08-21 16:06] LABS: Bacteria/HPF 1+ HPF (None Seen); CAUTI Indications for Culture Pelvic or flank pain; RBC/HPF 0-3 HPF (0-3); Squamous Epithelial 0-3 HPF (0-3); WBC/HPF 0-3 HPF (0-3)
[2022-08-21 16:07] LABS: Urine Culture Reflex No No
[2022-08-21 16:09] LABS: ALT (SGPT) 17 U/L (8-55); AST (SGOT) 20 U/L (5-34); Albumin 4.1 g/dL (3.4-4.8); Alkaline Phosphatase 85 U/L (40-110); Anion Gap 14 mmol/L (10-20); BUN (Urea Nitrogen) 32 mg/dL (8.4-25.7); Bilirubin, Total 0.5 mg/dL (0.2-1.2); Calc. Creatinine Clearance 0 mL/min (70-130); Calcium 9.1 mg/dL (7.8-10.44); Carbon Dioxide 24 mmol/L (23-31); Chloride 108 mmol/L (98-107); Estimated GFR 35; Globulin 3.1 g/dL (2.4-3.5); Glucose 89 mg/dL (83-110); Potassium 4.1 mmol/L (3.5-5.1); Protein, Total 7.2 g/dL (5.8-8.1); Sodium 142 mmol/L (136-145)
== END 2022-08-21 18:23 | disposition home or self-care (01) ==
LOC: BURERS 15:04
DX: K80.20 Calculus of gallbladder without cholecystitis without obstruction (principal); K59.00 Constipation, unspecified; I12.9 Hypertensive chronic kidney disease with stage 1 through stage 4 chronic kidney disease, or unspecified chronic kidney disease; E11.22 Type 2 diabetes mellitus with diabetic chronic kidney disease; N18.9 Chronic kidney disease, unspecified; N17.9 Acute kidney failure, unspecified; E78.00 Pure hypercholesterolemia, unspecified; Z79.82 Long term (current) use of aspirin; Z79.899 Other long term (current) drug therapy; Z79.84 Long term (current) use of oral hypoglycemic drugs
CPT/HCPCS: 74177; 80053; 81001; 83605; 85025; 96360; Q9967